=== PATIENT | female | born 1995 | race African-American/Black ===

== ENCOUNTER 2023-08-12 11:04 | Emergency (ER) | payer SELFPAY ==
[~2023-08-12] VITALS: Ht 172.7 cm; Wt 81.0 kg
[2023-08-12 11:13] VITALS: BP 129/73; PULSE 69; RESP 18; TEMP 98; O2SAT 99
[2023-08-12 11:49] LABS: BASOPHILS % 0.7 % (0.0-2.0); EOSINOPHILS % 5.7 % (0.0-5.0); HEMATOCRIT. 34.9 % (36.0-48.0); LYMPHOCYTES % 18.3 % (20.0-50.0); MEAN CORPUSCULAR HEMOGLOBIN 27.8 pg (28.0-32.0); MEAN CORPUSCULAR HGB CONC 34.3 g/dL (31.0-37.0); MEAN CORPUSCULAR VOLUME 81.2 fL (81.0-99.0); MEAN PLATELET VOLUME 8.3 fl (7.4-10.4); MONOCYTES % 6.7 % (2.0-8.0); NEUTROPHILS % 68.6 % (40.0-76.0); PLATELET 333 x1000/uL (130-400); RED CELL DISTRIBUTION WIDTH 14.3 % (11.6-14.6); WHITE BLOOD COUNT 6.1 x1000/uL (4.5-11.0)
[2023-08-12 12:04] LABS: CLARITY URINE CLOUDY (CLEAR); COLOR URINE YELLOW (YELLOW); GLUCOSE URINE NEGATIVE (NEGATIVE); KETONES URINE NEGATIVE (NEGATIVE); LEUKOCYTE ESTERASE URINE 3+ (NEGATIVE); NITRITE URINE NEGATIVE (NEGATIVE); OCCULT BLOOD URINE NEGATIVE (NEGATIVE); PROTEIN URINE NEGATIVE (NEGATIVE); SPECIFIC GRAVITY URINE 1.023 (1.005-1.030); UROBILINOGEN URINE 0.2 E.U./dL (0.2-1.0)
[2023-08-12 12:17] LABS: ALANINE AMINOTRANSFERASE 10 IU/L (10-49); ALBUMIN 4.8 g/dL (3.2-4.8); ASPARTATE AMINOTRANSFERASE 20 IU/L (<34); BILIRUBIN TOTAL 0.4 mg/dL (0.1-1.0); CARBON DIOXIDE 28 mEq/L (21-32); CHLORIDE 104 mEq/L (98-107); CREATININE 0.9 mg/dL (0.6-1.0); GLUCOSE 79 mg/dL (70-105); SODIUM 136 mEq/L (136-145); UREA NITROGEN BLOOD 10 mg/dL (9-23)
[2023-08-12 12:19] LABS: BACTERIA URINE 2+; SQUAMOUS EPITHELIAL CELL URINE 3+ /lpf (RARE/1+); YEAST URINE NONE SEEN
[2023-08-12] MEDS ORDERED: PHEN-909 MT (14:31)
[2023-08-12] MEDS ORDERED: NITR100C MT (14:31)
== END 2023-08-12 17:19 | disposition home or self-care (01) ==
LOC: ER 11:04
DX: N39.0 Urinary tract infection, site not specified (principal); R30.9 Painful micturition, unspecified
CPT/HCPCS: 36415; 80053; 81003; 81025; 85025; 99283

== ENCOUNTER 2023-12-31 23:35 | Emergency (ER) | payer SELFPAY ==
[~2023-12-31] VITALS: Ht 175.3 cm; Wt 83.0 kg
[~2023-12-31 23:35] MED LIST: NITR100C MT; PHEN-909 MT
[2023-12-31 23:48] VITALS: PULSE 91; RESP 18; TEMP 97.9; O2SAT 100
[2024-01-01 00:41] LABS: CLARITY URINE CLOUDY (CLEAR); COLOR URINE YELLOW (YELLOW); GLUCOSE URINE NEGATIVE (NEGATIVE); KETONES URINE TRACE (NEGATIVE); LEUKOCYTE ESTERASE URINE TRACE (NEGATIVE); NITRITE URINE NEGATIVE (NEGATIVE); OCCULT BLOOD URINE NEGATIVE (NEGATIVE); PH URINE 5.5 (4.5-8.0); PROTEIN URINE NEGATIVE (NEGATIVE); SPECIFIC GRAVITY URINE 1.023 (1.005-1.030)
[2024-01-01 00:55] LABS: BASOPHILS % 0.5 % (0.0-2.0); EOSINOPHILS % 5.6 % (0.0-5.0); HEMATOCRIT. 35.9 % (36.0-48.0); HEMOGLOBIN. 12.1 g/dL (12.0-16.0); LYMPHOCYTES % 15.8 % (20.0-50.0); MEAN CORPUSCULAR HEMOGLOBIN 28.3 pg (28.0-32.0); MEAN CORPUSCULAR HGB CONC 33.6 g/dL (31.0-37.0); MEAN CORPUSCULAR VOLUME 84.2 fL (81.0-99.0); MEAN PLATELET VOLUME 8.2 fl (7.4-10.4); MONOCYTES % 10.7 % (2.0-8.0); NEUTROPHILS % 67.4 % (40.0-76.0); PLATELET 332 x1000/uL (130-400); RED BLOOD CELL COUNT 4.26 mill/uL (4.2-5.4); RED CELL DISTRIBUTION WIDTH 13.9 % (11.6-14.6); WHITE BLOOD COUNT 6.9 x1000/uL (4.5-11.0)
[2024-01-01 01:04] LABS: CHLORIDE 106 mEq/L (98-107); POTASSIUM 3.7 mEq/L (3.5-5.1); SODIUM 138 mEq/L (136-145)
[2024-01-01 01:05] LABS: CARBON DIOXIDE 26 mEq/L (21-32)
[2024-01-01 01:06] LABS: CALCIUM 9.2 mg/dL (8.7-10.4)
[2024-01-01 01:10] LABS: CREATININE 0.9 mg/dL (0.6-1.0); GLUCOSE 94 mg/dL (70-105)
[2024-01-01 01:11] LABS: B-HCG QUANTITATIVE 528 mIU/mL (<3); UREA NITROGEN BLOOD 6 mg/dL (9-23)
[2024-01-01 01:12] LABS: ALANINE AMINOTRANSFERASE 8 IU/L (10-49); ALBUMIN 4.5 g/dL (3.2-4.8); ASPARTATE AMINOTRANSFERASE 17 IU/L (<34)
[2024-01-01 01:13] LABS: BILIRUBIN TOTAL 0.2 mg/dL (0.1-1.0); PROTEIN TOTAL 7.5 g/dL (6.0-8.3)
[2024-01-01 02:35] LABS: SQUAMOUS EPITHELIAL CELL URINE 1+ /lpf (RARE/1+)
[2024-01-01 02:36] LABS: RBC URINE 0-2 /hpf (0-2); WBC URINE 0-2 /hpf (0-2)
[2024-01-01 02:39] LABS: BACTERIA URINE NONE SEEN
== END 2024-01-01 03:31 | disposition left against medical advice (07) ==
LOC: ER 23:46
DX: N93.9 Abnormal uterine and vaginal bleeding, unspecified (principal); Z53.21 Procedure and treatment not carried out due to patient leaving prior to being seen by health care provider
CPT/HCPCS: 36415; 80053; 81003; 81025; 84702; 85025; 86850; 86900; 99283